=== PATIENT | male | born 1950 | race Caucasian/White ===

== ENCOUNTER 2019-07-23 21:23 | Emergency (ER) | payer MEDICARE ==
[~2019-07-23] VITALS: Ht 175.3 cm; Wt 95.0 kg
--- NOTE | 2019-07-23 21:40 | NUR ---
PT BIB EMS FROM [facility]. PT EXPERIENCED ABOUT 10 MINUTES OF BLINDNESS TODAY AT ABOUT 1930 OF LEFT EYE. PT WAS SENT TO [facility] FOR A POSSIBLE TIA WORKUP. NO CT SCAN WAS PEFORMED IN [place]. PT IS RESTING IN [facility]. CONNECTED TO MONITORING EQUIPMENT. PT DENIES ANY AND ALL LEFT EYE PROBLEMS AT THIS TIME
[2019-07-23] MEDS ORDERED: METFORMIN (21:43)
[2019-07-23 22:02] LABS: HCT (SEDRATE) 46.6 % (39.2-51.8)
[2019-07-23 22:13] LABS: INTERNATIONAL NORMALIZED RATIO 1.16 (0.93-1.1); PROTHROMBIN TIME 12.3 Seconds (9.6-11.5)
--- NOTE | 2019-07-23 22:23 | NUR ---
PT UPDATED ON POC, NO SIGNS OF DISTRESS, VSS, WILL CONTINUE TO MONITOR. ALL NEEDS MET AT THIS TIME.
--- NOTE | 2019-07-23 23:07 | NUR ---
PT UPDATED ON POC. PT TO CT. ALL NEEDS MET AT THIS TIME.
--- NOTE | 2019-07-23 23:20 | NUR ---
PT BACK FROM IMAGING, AMBULATORY TO BATHROOM, STEADY GAIT.
[2019-07-23 23:26] VITALS: BP 150/96
[2019-07-23] MEDS ORDERED: OMNIPAQUE 350 MG/ML, 75ML BOTTLE ONE (23:36)
== END 2019-07-24 00:53 | disposition home or self-care (01) ==
LOC: ED 22:05
DX: G45.3 Amaurosis fugax (principal); H53.132 Sudden visual loss, left eye; R51 Headache; E78.00 Pure hypercholesterolemia, unspecified; I10 Essential (primary) hypertension
CPT/HCPCS: 36415; 70450; 70496; 70498; 85610; 85651; 85730; 99285; Q9967